=== PATIENT | female | born 1990 | race Hispanic/Latino ===

== ENCOUNTER 2017-04-05 09:50 | Emergency (ER) | payer MEDICAID ==
[~2017-04-05] VITALS: Ht 152.4 cm; Wt 86.2 kg
[2017-04-05 09:50] VITALS: BP 124/73
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
--- NOTE | 2017-04-05 11:11 | Diagnostic Imaging Report ---
Indication: PAIN Technique: 3 views right foot Comparison: none Findings: No acute fractures. No dislocations. The joint spaces are preserved. There is a tiny plantar spur. 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
[2017-04-05] MEDS ORDERED: ACETAMINOPHEN500 M7 PO (11:18)
[2017-04-05 12:25] VITALS: BP 101/67
== END 2017-04-05 12:25 | disposition home or self-care (01) ==
LOC: EDBD 09:50 → EMR 10:40
DX: S00.83XA Contusion of other part of head, initial encounter (principal); S00.81XA Abrasion of other part of head, initial encounter; S90.414A Abrasion, right lesser toe(s), initial encounter; S40.022A Contusion of left upper arm, initial encounter; Y04.8XXA Assault by other bodily force, initial encounter; Y92.009 Unspecified place in unspecified non-institutional (private) residence as the place of occurrence of the external cause
CPT/HCPCS: 70450; 99284